=== PATIENT | female | born 1985 | race Caucasian/White ===

== ENCOUNTER 2017-04-02 13:34 | Emergency (ER) | payer OTHER ==
[2017-04-02 13:57] LABS: Appearance,Urine Cloudy (Clear); Bilirubin,Urine Negative (Negative); Blood,Urine Negative (Negative); Color,Urine Yellow; Glucose,Urine (UA) Negative (Negative); Ketones,Urine Negative (Negative); Leukocyte Esterase,Urine Negative (Negative); Nitrite,Urine Negative (Negative); PH, Urine 5.5 (5.0-8.0); Protein,Urine Negative (Negative); RBC,Urine <1 /hpf (0-5); Specific Gravity,Urine 1.007 (1.001-1.035); Squamous Epithelial Cell,Urine 3 /hpf (0-4); Urobilinogen,Urine <2.0 mg/dL (<2.0); WBC,Urine 1 /hpf (0-5)
[2017-04-02] MEDS ORDERED: SODIUM CHLORIDE 0.9% 1,000 ML IV STA ×2 (14:24)
[2017-04-02 14:51] LABS: Basophils % (A) 1 %; Eosinophils # (A) 0.2 k/uL (0-0.7); Eosinophils % (A) 3 %; HCT 43.4 % (34.0-46.0); Lymphocytes # (A) 1.8 k/uL (1.0-4.8); Lymphocytes % (A) 23 %; MCH 29.1 pg (25.0-35.0); MCHC 32.2 g/dL (31.0-37.0); MCV 90.3 fL (80.0-100.0); Mean Platelet Volume 7.1; Monocytes # (A) 0.5 k/uL (0-1.0); Monocytes % (A) 6 %; Neutrophils % (A) 66 %; Platelet Count 230 k/uL (150-450); RDW 13.2 % (11.5-15.5); WBC 7.7 k/uL (3.8-10.6)
--- NOTE | 2017-04-02 14:58 | ED ---
Recheck HPI - General Chief Complaint: Recheck/Abnormal Lab/Rx Stated Complaint: test Time Seen by Provider: 04/02/17 13:43 Source: patient, RN notes reviewed, old records reviewed Mode of arrival: ambulatory Limitations: no limitations - History of Present Illness Initial Comments: This patient is a 32-year-old female presents emergency department today chief complaint of 2 positive test a few days ago and wants to confirm . She reports that she's had a history of tubal ligation a year and half ago. She reports that she has noticed that her breast been tender and she' s been having . She states she's not on any medications. Denies any headache or other symptoms. Patient states that she has no abdominal pain, cramping, chest pain or shortness of breath. - Related Data Home Medications Medication Instructions Recorded Confirmed No Known Home Medications [No 04/02/17 04/02/17 Known Home Medications] Allergies Allergy/AdvReac Type Severity Reaction Status Date / Time No Known Allergies Allergy Verified 04/02/17 13:55 Review of Systems ROS Statement: Those systems with pertinent positive or pertinent negative responses have been documented in the HPI. ROS Other: All systems not noted in ROS Statement are negative. Past Medical History Past Medical History: No Reported History History of Any Multi-Drug Resistant Organisms: None Reported Past Surgical History: Tubal Ligation Past Psychological History: No Psychological Hx Reported Smoking Status: Current every day smoker Past Alcohol Use History: Occasional Past Drug Use History: None Reported General Exam - General Exam Comments Initial Comments: This is a 32-year-old female. No distress. Limitations: no limitations General appearance: alert, in no apparent distress Head exam: Present: atraumatic, normocephalic, normal inspection Eye exam: Present: normal appearance, PERRL, EOMI. Absent: scleral icterus, conjunctival injection, periorbital swelling ENT exam: Present: normal exam, mucous membranes moist Neck exam: Present: normal inspection. Absent: tenderness, meningismus, lymphadenopathy Respiratory exam: Present: normal lung sounds bilaterally Cardiovascular Exam: Present: regular rate, normal rhythm, normal heart sounds, other (Patient is having galactorhea. ). Absent: systolic murmur, diastolic murmur, rubs, gallop, clicks GI/Abdominal exam: Present: soft, normal bowel sounds. Absent: distended, tenderness, guarding, rebound, rigid Extremities exam: Present: normal inspection, full ROM, normal capillary refill. Absent: tenderness, pedal edema, joint swelling, calf tenderness Back exam: Present: normal inspection Neurological exam: Present: alert, oriented X3, CN II-XII intact Psychiatric exam: Present: normal affect, normal mood Skin exam: Present: warm, dry, intact, normal color. Absent: rash Course Vital Signs 04/02/17 04/02/17 13:39 16:45 Temperature 98.8 F 97.4 F L Pulse Rate 98 69 Respiratory 18 16 Rate Blood Pressure 120/74 109/59 O2 Sat by Pulse 98 100 Oximetry Medical Decision Making - Medical Decision Making 32 year old femalfred presents wanting to confirm as she has had 2 positive tests last week, as well as galactorrhea. She has no other symptoms or pain at this time. PAtient is able to produce milk from breast when squeezed. urine hcg is negtive, serum hcg is negative. She states she has had tubal ligation one year ago. She report sthat the gallactorrhea started last week and patient had no previous breast feeding. She was adivsed of other causes for gallactorrhea, including medications. Patient denies medication use. Patient alb work was reviewed and she does have elevated transaminases. Patient underwent gallbladder and liver US which was normal. Following hormonal bloodwork such as fsh, lh, estrogen and progesterine were send out labratory studies. We also included acute hepatitis panel. She has no jaundice. I disucssed she needs to follow up with OB, endocrine, and PCP. She is new to the area and given referrals. All question answered and return parameters discussed - Lab Data Result diagrams: 04/02/17 14:38 04/02/17 14:38 Lab Results 04/02/17 04/02/17 04/02/17 Range/Units 13:46 13:46 14:38 WBC (3.8-10.6) k/uL RBC (3.80-5.40) m/uL Hgb (11.4-16.0) gm/dL Hct (34.0-46.0) % MCV (80.0-100.0) fL MCH (25.0-35.0) pg MCHC (31.0-37.0) g/dL RDW (11.5-15.5) % Plt Count (150-450) k/uL Neutrophils % % Lymphocytes % % Monocytes % % Eosinophils % % Basophils % % Neutrophils # (1.3-7.7) k/uL Lymphocytes # (1.0-4.8) k/uL Monocytes # (0-1.0) k/uL Eosinophils # (0-0.7) k/uL Basophils # (0-0.2) k/uL Sodium 140 (137-145) mmol/L Potassium 4.0 (3.5-5.1) mmol/L Chloride 104 (98-107) mmol/L Carbon Dioxide 24 (22-30) mmol/L Anion Gap 12 mmol/L BUN 12 (7-17) mg/dL Creatinine 0.70 (0.52-1.04) mg/dL Est GFR (MDRD) Af Amer >60 (>60 ml/min/1.73 sqM) Est GFR (MDRD) Non-Af >60 (>60 ml/min/1.73 sqM) Glucose 83 (74-99) mg/dL Calcium 9.5 (8.4-10.2) mg/dL Total Bilirubin 0.6 (0.2-1.3) mg/dL AST 255 H (14-36) U/L ALT 658 H (9-52) U/L Alkaline Phosphatase 100 (38-126) U/L Total Protein 7.1 (6.3-8.2) g/dL Albumin 4.3 (3.5-5.0) g/dL TSH 0.998 (0.465-4.680) mIU/L Total Estrogens pg/mL FSH mIU/mL Luteinizing Hormone mIU/mL Prolactin (2.8-29.2) ng/mL Progesterone ng/mL HCG, Quant <2.4 mIU/mL Urine Color Yellow Urine Appearance Cloudy H (Clear) Urine pH 5.5 (5.0-8.0) Ur Specific [place] 1.007 (1.001-1.035) Urine Protein Negative (Negative) Urine Glucose (UA) Negative (Negative) Urine Ketones Negative (Negative) Urine Blood Negative (Negative) Urine Nitrite Negative (Negative) Urine Bilirubin Negative (Negative) Urine Urobilinogen <2.0 (<2.0) mg/dL Ur Leukocyte Esterase Negative (Negative) Urine RBC <1 (0-5) /hpf Urine WBC 1 (0-5) /hpf Ur Squamous Epith Cells 3 (0-4) /hpf Urine HCG, Qual Not Detected (Not Detectd) Hepatitis A IgM Ab (Non-Reactive) Hep Bs Antigen (Non-Reactive) Hep B Core IgM Ab (Non-Reactive) Hep C IgG Ab (Non-Reactive) 04/02/17 04/02/17 04/02/17 Range/Units 14:38 14:38 14:38 WBC 7.7 (3.8-10.6) k/uL RBC 4.80 (3.80-5.40) m/uL Hgb 14.0 (11.4-16.0) gm/dL Hct 43.4 (34.0-46.0) % MCV 90.3 (80.0-100.0) fL MCH 29.1 (25.0-35.0) pg MCHC 32.2 (31.0-37.0) g/dL RDW 13.2 (11.5-15.5) % Plt Count 230 (150-450) k/uL Neutrophils % 66 % Lymphocytes % 23 % Monocytes % 6 % Eosinophils % 3 % Basophils % 1 % Neutrophils # 5.0 (1.3-7.7) k/uL Lymphocytes # 1.8 (1.0-4.8) k/uL Monocytes # 0.5 (0-1.0) k/uL Eosinophils # 0.2 (0-0.7) k/uL Basophils # 0.0 (0-0.2) k/uL Sodium (137-145) mmol/L Potassium (3.5-5.1) mmol/L Chloride (98-107) mmol/L Carbon Dioxide (22-30) mmol/L Anion Gap mmol/L BUN (7-17) mg/dL Creatinine (0.52-1.04) mg/dL Est GFR (MDRD) Af Amer (>60 ml/min/1.73 sqM) Est GFR (MDRD) Non-Af (>60 ml/min/1.73 sqM) Glucose (74-99) mg/dL Calcium (8.4-10.2) mg/dL Total Bilirubin (0.2-1.3) mg/dL AST (14-36) U/L ALT (9-52) U/L Alkaline Phosphatase (38-126) U/L Total Protein (6.3-8.2) g/dL Albumin (3.5-5.0) g/dL TSH (0.465-4.680) mIU/L Total Estrogens 205 pg/mL FSH 3.2 mIU/mL Luteinizing Hormone 1.6 mIU/mL Prolactin 98.8 H (2.8-29.2) ng/mL Progesterone 5.0 ng/mL HCG, Quant mIU/mL Urine Color Urine Appearance (Clear) Urine pH (5.0-8.0) Ur Specific [place] (1.001-1.035) Urine Protein (Negative) Urine Glucose (UA) (Negative) Urine Ketones (Negative) Urine Blood (Negative) Urine Nitrite (Negative) Urine Bilirubin (Negative) Urine Urobilinogen (<2.0) mg/dL Ur Leukocyte Esterase (Negative) Urine RBC (0-5) /hpf Urine WBC (0-5) /hpf Ur Squamous Epith Cells (0-4) /hpf Urine HCG, Qual (Not Detectd) Hepatitis A IgM Ab (Non-Reactive) Hep Bs Antigen (Non-Reactive) Hep B Core IgM Ab (Non-Reactive) Hep C IgG Ab (Non-Reactive) 04/02/17 Range/Units 14:38 WBC (3.8-10.6) k/uL RBC (3.80-5.40) m/uL Hgb (11.4-16.0) gm/dL Hct (34.0-46.0) % MCV (80.0-100.0) fL MCH (25.0-35.0) pg MCHC (31.0-37.0) g/dL RDW (11.5-15.5) % Plt Count (150-450) k/uL Neutrophils % % Lymphocytes % % Monocytes % % Eosinophils % % Basophils % % Neutrophils # (1.3-7.7) k/uL Lymphocytes # (1.0-4.8) k/uL Monocytes # (0-1.0) k/uL Eosinophils # (0-0.7) k/uL Basophils # (0-0.2) k/uL Sodium (137-145) mmol/L Potassium (3.5-5.1) mmol/L Chloride (98-107) mmol/L Carbon Dioxide (22-30) mmol/L Anion Gap mmol/L BUN (7-17) mg/dL Creatinine (0.52-1.04) mg/dL Est GFR (MDRD) Af Amer (>60 ml/min/1.73 sqM) Est GFR (MDRD) Non-Af (>60 ml/min/1.73 sqM) Glucose (74-99) mg/dL Calcium (8.4-10.2) mg/dL Total Bilirubin (0.2-1.3) mg/dL AST (14-36) U/L ALT (9-52) U/L Alkaline Phosphatase (38-126) U/L Total Protein (6.3-8.2) g/dL Albumin (3.5-5.0) g/dL TSH (0.465-4.680) mIU/L Total Estrogens pg/mL FSH mIU/mL Luteinizing Hormone mIU/mL Prolactin (2.8-29.2) ng/mL Progesterone ng/mL HCG, Quant mIU/mL Urine Color Urine Appearance (Clear) Urine pH (5.0-8.0) Ur Specific [place] (1.001-1.035) Urine Protein (Negative) Urine Glucose (UA) (Negative) Urine Ketones (Negative) Urine Blood (Negative) Urine Nitrite (Negative) Urine Bilirubin (Negative) Urine Urobilinogen (<2.0) mg/dL Ur Leukocyte Esterase (Negative) Urine RBC (0-5) /hpf Urine WBC (0-5) /hpf Ur Squamous Epith Cells (0-4) /hpf Urine HCG, Qual (Not Detectd) Hepatitis A IgM Ab Non-Reactive (Non-Reactive) Hep Bs Antigen Non-Reactive (Non-Reactive) Hep B Core IgM Ab Non-Reactive (Non-Reactive) Hep C IgG Ab Reactive H (Non-Reactive) - Radiology Data Radiology results: report reviewed (US gallbladder was reviewed and normal. ) Liver parenchyma is normal, gallbladder wall thickened but due to contracted state. Pancrease was not totally visualized due to obstructing gas. Disposition Clinical Impression: Galactorrhea, Elevated liver enzymes Disposition: HOME SELF-CARE Condition: Good Instructions: Galactorrhea (ED) Additional Instructions: Patient advised to follow-up with primary care provider and [facility] [employer] pals specialist specialty's. Return to the emergency department if any alarming signs or symptoms occur. Referrals: Nonstaff,Physician [Primary Care Provider] - 1-2 days Andrés Cifuentes MD [REFERRING] - 1-2 days Roma Mota MD [REFERRING] - 1-2 days Best Nick MD [STAFF PHYSICIAN] - 1-2 days Time of Disposition: 16:54
[2017-04-02 15:01] LABS: ALT 658 U/L (9-52); AST 255 U/L (14-36); Albumin 4.3 g/dL (3.5-5.0); Alkaline Phosphatase 100 U/L (38-126); Anion Gap 12 mmol/L; Blood Urea Nitrogen 12 mg/dL (7-17); Calcium 9.5 mg/dL (8.4-10.2); Carbon Dioxide 24 mmol/L (22-30); Chloride 104 mmol/L (98-107); Glucose 83 mg/dL (74-99); Sodium 140 mmol/L (137-145); Total Bilirubin 0.6 mg/dL (0.2-1.3); Total Protein 7.1 g/dL (6.3-8.2)
[2017-04-02 15:17] LABS: HCG,Quantitative Serum <2.4 mIU/mL
--- NOTE | 2017-04-02 16:16 | US ---
EXAMINATION TYPE: US gallbladder DATE OF EXAM: 04/02/2017 COMPARISON: NONE CLINICAL HISTORY: Pain. Patient states she came to ER for test. She had labs drawn and elevated liver enzymes showe d up. Patient has no pain, nausea or vomiting. She is a half hour post prandial. Not properly prepped for test causing technical limitations. EXAM MEASUREMENTS: Liver Length: 13.4 cm Gallbladder Wall: 0.3 cm CBD: 0.08 cm Right Kidney: 9.9 x 4.0 x 4.9 cm Pancreas: mostly obscured by bowel gas Liver: wnl Gallbladder: patient not prepped for test, gallbladder contracted Evidence for sonographic Donahue's sign: No CBD: wnl Right Kidney: Inferior pole obscured by overlying bowel gas IMPRESSION: 1. Hepatic parenchyma is unremarkable sonographically. 2. Circumferential mild gallbladder wall thickening secondary to the contracted gallbladder state. 3. Pancreas is only partially visualized mostly obscured by bowel gas.
[2017-04-02 16:46] VITALS: BP 109/59; PULSE 69; RESP 16; TEMP 97.4
[2017-04-03 01:09] LABS: Hepatitis A Antibody IgM Non-Reactive (Non-Reactive); Hepatitis B Core IgM Non-Reactive (Non-Reactive)
[2017-04-04 10:53] LABS: Growth Hormone, Human 0.5 ng/mL (<10)
== END 2017-04-02 17:03 | disposition home or self-care (01) ==
LOC: EC 13:34
DX: O92.6 Galactorrhea (principal); R79.89 Other specified abnormal findings of blood chemistry; F17.200 Nicotine dependence, unspecified, uncomplicated
CPT/HCPCS: 36415; 76705; 80053; 80074; 81001; 81025; 82672; 83001; 83002; 83003; 84144; 84146; 84443; 84702; 85025; 96360; 96361; 99283